=== PATIENT | male | born 1970 | race Two or more races ===

== ENCOUNTER 2024-07-13 10:00 | Emergency (ER) | payer BC, SELFPAY ==
[2024-07-13 10:01] VITALS: BMI 35.0
[2024-07-13 11:40] VITALS: BP 144/90; PULSE 77; RESP 18; TEMP 36.8; O2SAT 98
--- NOTE | 2024-07-13 11:58 | PD.EDDENTL ---
ED Dental RME/HPI General Chief complaint: Dental/Oral/Throat Stated complaint: TONSIL PAIN Time Seen by Provider: 07/13/24 10:46 Source: patient Arrival date/time: 07/13/24 10:00 This is a 53-year-old male presented to the emergency department with complaints of bilateral throat pain,heachache, pain with swallowing. Patient reports symptoms have been for 4 days. Patient did not attempt any interventions or take any OTC medications prior to ED visit. Patient denies any other associated symptoms or aggravating factors. No modifying factors, no radiation, no migration. Related Data Previous Rx's ?Medication ?Instructions ?Recorded ibuprofen 600 mg tablet 600 mg PO TID PRN pain #30 tabs 01/03/23 celecoxib 200 mg capsule 200 mg PO BID PRN pain #30 caps 07/18/23 cephalexin 500 mg capsule 500 mg PO QID #40 caps 07/18/23 amoxicillin 875 mg-potassium 1 tab PO BID 7 days #14 tabs 07/13/24 clavulanate 125 mg tablet Allergies Allergy/AdvReac Type Severity Reaction Status Date / Time No Known Allergies Allergy Verified 07/13/24 10:02 Review of Systems Review of Systems Systems Reviewed: All systems reviewed, normal except as documented ED Exam Narrative Physical exam: General: Sittiing in Exam table in no acute distress, answering questions appropriately HENT: normocephalic, atraumatic, EOMI, PERRLA, moist mucous membranes, hypertrophic tonsils bilateral white exudate Chest: chest wall is nontender Cardiac: regular rate and rhythm, normal S1 and S2, no murmurs, rubs, or gallops, capillary refill ?2 seconds Pulmonary: clear to auscultation bilaterally, no wheezing, crackles, or rhonchi Abdominal: active bowel sounds, soft, nontender, nondistended Neuro: A&OX3, CN II-XII intact, sensation grossly intact bilaterally in UE and LE. Skin: no rashes, no ecchymosis Ext: no lower extremity edema Course Quality Measures none Orders Category Date Time Status Dexamethasone Inj [Decadron Inj] Med 07/13/24 11:55 Discontinued 10 mg IM X1 ONE Vital Signs Vital signs: Vital Signs Temperature 98.3 F 07/13/24 11:40 Pulse Rate 77 07/13/24 11:40 Respiratory Rate 18 07/13/24 11:40 Blood Pressure 144/90 H 07/13/24 11:40 Pulse Oximetry (%) 98 07/13/24 11:40 Oxygen Delivery Method Room Air 07/13/24 11:40 Dental / Oral MDM Narrative MDM Narrative:: Pt made aware will treat as presumptive streptococcal pharyngitis based on sypmtoms. Centor criteria 4, will start abx empirically. Patient data External records reviewed:: None Clinical information provided by:: patient Social determinants that could affect healthcare access:: none Patient has the following chronic illnesses:: None How is presenting disease/condition affected by chronic disease/condition?: no chronic disease Evaluation data The following diagnostics were reviewed and interpreted by me:: other (specify) Lab and/or radiology exams considered but not ordered:: Considered a strep test however we will treat Interpretation Summary: Not applicable Medications / Prescriptions Medications or Prescriptions considered but not ordered:: None Medication administrations:: Medication Administration History Discontinued Medications Dexamethasone Sodium Phosphate (Dexamethasone Sod Phos Inj 10 Mg/Ml Vial) 10 mg IM X1 ONE Stop: 07/13/24 11:56 Last Admin: 07/13/24 12:11 Dose: 10 mg Documented By: DB All medications administered and effective Consultations Consultation(s) initiated? (list below): No Diagnosis Dental Differential Diagnosis: dental caries, fracture of tooth and other (Seasonal allergies, pharyngitis, strep pharyngitis) Most likely diagnosis given after review of the tests above:: Strep pharyngitis Admission Indicated Admission indicated?: not indicated Admission Request Was there a request for admission?: No Disposition Plan Disposition Plan: Discharge Discharge Attestation Discharge Attestation: The patient and all family members were given an opportunity to ask questions and understood the discharge instructions. Discharge instructions specifically effects, indications for sooner follow up or return to the emergency department, and the expected course of current diagnosis. Patient condition: Stable Discharge Plan Plan Patient Disposition: HOME (Self Care) Patient condition on transfer: Stable Prescriptions/Referrals Prescriptions/Med Rec: New amoxicillin-pot clavulanate 875-125 mg tablet 1 tab PO BID 7 Days Qty: 14 0RF No Action ibuprofen 600 mg tablet 600 mg PO TID PRN (Reason: pain) Qty: 30 0RF celecoxib 200 mg capsule 200 mg PO BID PRN (Reason: pain) Qty: 30 0RF cephalexin 500 mg capsule 500 mg PO QID Qty: 40 0RF Problem List Clinical Impression: Pharyngitis Patient/Caregiver Discharge Instructions Discharge Activity: activity as tolerated Education Materials: When You Have a Sore Throat Additional Instructions: Can to take OTC NSAID prn pain or fevers. Fluids, soups, tea, honey advised. Use humidifier at nights. Replace toothbrush. Follow up if symptoms persist / worsen over next 2-3 days. As discussed you can also start a fstp-sue-jsvhtar allergy medication. Return to the emergency department if there is any worsening symptoms or change in condition. Print Language: Greenlandic Stand Alone Forms: Raegan Award Info., Work/School Release, Patient Portal Info Letter PA/[employer] Supervising Physician PA/TITO Supervising Physician: Dr. Padron
[2024-07-13] MEDS: DEXAMETHASONE SOD PHOS INJ 10 MG/ML VIAL IM (12:11)
== END 2024-07-13 12:17 | disposition home or self-care (01) ==
LOC: SERX 12:05
PROVIDERS: Emergency Provider Emergency Medicine; PCP Nurse Practitioner Family
DX: J02.9 Acute pharyngitis, unspecified (principal)
CPT/HCPCS: 96372; 99283; J1100

== ENCOUNTER → 2025-02-23 | Outpatient (CLI) | payer BC, SELFPAY ==
[2025-02-23 10:04] LABS: Collection Type, Urine Clean Catch; Squamous Epithelial Cell,Urine 0 /hpf (0-5)
[2025-02-23 10:39] LABS: Basophils # (Auto) 0.0 Thou/mm3 (0.0-0.2); Basophils % (Auto) 1 % (0-2.5); Eosinophils # (Auto) 0.1 Thou/mm3 (0.0-0.5); Eosinophils % (Auto) 2 % (0-10); Hematocrit 51.9 % (41.0-53.0); Hemoglobin 18.0 g/dL (13.5-16.0); Immature Granulocytes Auto 0.04 Thou/mm3 (0.00-0.00); Lymphocytes # (Auto) 2.3 Thou/mm3 (1.0-4.8); Lymphocytes % (Auto) 27 % (10-50); Mean Corpuscular HGB Conc 34.7 g/dl (31.0-37.0); Mean Corpuscular Hemoglobin 31.3 pg (25.0-35.0); Mean Corpuscular Volume 90 fL (80-100); Monocytes # (Auto) 0.6 Thou/mm3 (0.0-0.8); Monocytes % (Auto) 7 % (0-12); Neutrophils # (Auto) 5.3 Thou/mm3 (1.8-7.7); Neutrophils % (Auto) 63 % (37-80); Nucleated Red Blood Cell # 0.00 Thou/mm3 (0.00-0.00); Nucleated Red Blood Cell % 0 /100 WBC (0); Platelet Count 239 Thou/mm3 (140-440); RDW Standard Deviation 41.3 fL (35.1-43.9); Red Blood Count 5.75 Miln/mm3 (4.50-5.90); White Blood Count 8.4 Thou/mm3 (3.8-10.6)
[2025-02-23 10:41] LABS: Bilirubin,Urine Negative (Negative); Blood,Urine Negative (Negative); Clarity,Urine Clear (Clear/Hazy); Color,Urine Yellow (Lt Yel-Yel); Glucose, Urine Negative (Negative); Ketones,Urine Negative (Negative); Leukocyte Esterase,Urine Negative (Negative); Nitrite,Urine Negative (Negative); PH,Urine 6.0 (5.0-7.0); Protein,Urine Negative (Neg - Trace); RBC,Urine 3 /hpf (0-3); Specific Gravity,Urine 1.022 (1.001-1.035); Urobilinogen,Urine Negative mg/dL (0.0-1.0); WBC,Urine 1 /hpf (0-5)
[2025-02-23 10:53] LABS: Glucose Estimated Average 103 mg/dL (80-131); Hemoglobin A1C 5.2 % Hgb (4.8-6.0)
[2025-02-23 10:54] LABS: Creatinine MALB Rnd Ur 183 mg/dL (30-125); Microalbumin Creat Ratio 7 mg/gCrea (<30); Microalbumin, Random Urine 12 mg/L (0-300)
[2025-02-23 11:00] LABS: Prostate Specific Antigen 0.41 ng/mL (0-4.00)
[2025-02-23 11:09] LABS: Vitamin B12 321 pg/mL (211-911); Vitamin D 25 Hydroxy Total 30.9 ng/mL (7.3-40.2)
[2025-02-23 11:13] LABS: Alanine Aminotransferase 25 U/L (10-49); Albumin, Serum 4.5 gm/dL (3.5-5.0); Albumin/Globulin Ratio 1.8 (1.2-2.2); Alkaline Phosphatase 108 U/L (46-116); Anion Gap 9 (7-16); Aspartate Amino Transferase 22 U/L (0-34); BUN/Creatinine Ratio 11 Ratio (12-20); Bilirubin,Total 0.7 mg/dL (0.3-1.2); Blood Urea Nitrogen 11 mg/dL (9-23); Calcium 9.5 mg/dL (8.3-10.6); Calcium (Corrected) 9.5 mg/dL (8.5-10.1); Carbon Dioxide 26.8 mMol/L (20.0-31.0); Cardiac Risk Estimate 4.2 RATIO (4.0-6.7); Chloride 105 mMol/L (98-107); Cholesterol 194 mg/dL (132-200); Creatinine (Component) 1.0 mg/dL (0.6-1.3); Globulin 2.5 gm/dL (2.3-3.5); Glucose 98 mg/dL (74-106); HDL Cholesterol 46 mg/dL (40-60); LDL Cholesterol,Calculated 114 mg/dL (0-130); Osmolality,Calculated 280 (275-295); Potassium 4.3 mMol/L (3.4-5.1); Sodium 141 mMol/L (136-145); Total Protein 7.0 gm/dL (5.7-8.2); Triglycerides 168 mg/dL (30-150); eGFR > 60 See Note
== END | disposition home or self-care (01) ==
LOC: COPL 09:07
DX: M54.2 Cervicalgia (principal)
CPT/HCPCS: 36415; 80053; 80061; 81001; 82043; 82306; 82570; 82607; 83036; 84153; 85025